=== PATIENT | female | born 1960 | race African-American/Black ===

== ENCOUNTER 2017-03-24 08:01 | Emergency (ER) | payer BC, OTHER ==
[2017-03-24 08:08] VITALS: TEMP 98.3; BMI 21.2
[2017-03-24] MEDS ORDERED: MECLIZINE HCL 25 MG TABLET (FP) PO ONE ×2 (09:57→13:15)
[2017-03-24 10:17] VITALS: BP 138/82; PULSE 58
[2017-03-24 10:19] LABS: BASO % 0.6 % (0-2.0); EOS % 0.2 % (0-4.5); HEMATOCRIT 39.3 % (32.4-45.2); HEMOGLOBIN 13.1 GM/dL (10.7-15.3); LYMPH % 34.4 % (8-40); MCH 32.8 pg (25.7-33.7); MCHC 33.3 g/dl (32.0-36.0); MEAN CELL VOLUME 98.3 fl (80-96); MEAN PLT VOLUME 9.4 fl (7.5-11.1); MONO % 6.6 % (3.8-10.2); NEUT % 58.2 % (42.8-82.8); PLATELET COUNT 213 K/MM3 (134-434); RDW 13.6 % (11.6-15.6); WHITE BLOOD COUNT 5.2 K/mm3 (4.0-10.0)
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
[2017-03-24 10:47] LABS: ALBUMIN 4.1 g/dl (3.4-5.0); ANION GAP 6 (8-16); BILIRUBIN,TOTAL 1.2 mg/dL (0.2-1.0); BLOOD UREA NITROGEN 8 mg/dL (7-18); CALCIUM 9.2 mg/dL (8.5-10.1); CHLORIDE 107 mmol/L (98-107); CO2 28 mmol/L (21-32); CREATININE 0.9 mg/dL (0.55-1.02); GLUCOSE,RANDOM 93 mg/dL (74-106); POTASSIUM 4.1 mmol/L (3.5-5.1); SGOT/AST 23 U/L (15-37); SGPT/ALT 34 U/L (12-78); SODIUM 141 mmol/L (136-145); TOT PROT 7.6 g/dl (6.4-8.2)
[2017-03-24 10:55] LABS: ALK PHOS 58 U/L (45-117)
--- NOTE | 2017-03-24 11:14 | PDOC ---
*Physical Exam - Vital Signs Last Vital Signs Temp Pulse Resp BP Pulse Ox 98.3 F 58 L 14 138/82 100 03/24/17 08:05 03/24/17 10:16 03/24/17 10:16 03/24/17 10:16 03/24/17 10:16 ED Treatment Course - LABORATORY CBC & Chemistry Diagram: 03/24/17 10:05 03/24/17 10:05 - ADDITIONAL ORDERS Additional order review: Laboratory Results 03/24/17 10:05 Sodium 141 Potassium 4.1 Chloride 107 Carbon Dioxide 28 Anion Gap 6 L BUN 8 D Creatinine 0.9 Creat Clearance w eGFR > 60 Random Glucose 93 Calcium 9.2 Total Bilirubin 1.2 H AST 23 ALT 34 D Alkaline Phosphatase 58 D Total Protein 7.6 Albumin 4.1 TSH 0.39 03/24/17 10:05 RBC 4.00 MCV 98.3 H MCHC 33.3 RDW 13.6 MPV 9.4 Neutrophils % 58.2 Lymphocytes % 34.4 Monocytes % 6.6 Eosinophils % 0.2 D Basophils % 0.6 Medical Decision Making - Medical Decision Making 03/24/17 11:12 56-year-old female presents to the ED with complaints of intermittent vertigo, worsened with standing No headache No tinnitus h/o vertigo Pt seen by Midlevel Provider under my direct supervision Pt interviewed and examined Ancillary studies reviewed EKG: Sinus bradycardia, rate 55, axis is normal, intervals are normal, no ST elevations or depressions I agree with plan as outlined by Midlevel Provider 03/24/17 14:21 Laboratory Tests 03/24/17 03/24/17 10:05 10:05 WBC 5.2 Hgb 13.1 Hct 39.3 Plt Count 213 Neutrophils % 58.2 Lymphocytes % 34.4 BUN 8 D Creatinine 0.9 TSH 0.39 Pt improved in the ER Discharged to home *DC/Admit/Observation/Transfer Diagnosis at time of Disposition: Vertigo - Discharge Dispostion Disposition: HOME Condition at time of disposition: Improved - Prescriptions Prescriptions: Meclizine HCl [Antivert -] 12.5 mg PO TID PRN #60 tablet PRN Reason: Vertigo - Referrals Referrals: Christopher Garcia MD [Primary Care Provider] - Aaron Subramanian MD [Staff Physician] - - Patient Instructions Printed Discharge Instructions: DI for Vertigo Additional Instructions: Please take meclizine as needed for dizziness. drink plenty of fluids and get up in increments upon arising in the morning. - Post Discharge Activity Forms/Work/School Notes: Back to Work
[2017-03-24 13:36] LABS: URINE APPEARANCE CLEAR; URINE BILIRUBIN NEGATIVE (NEGATIVE); URINE BLOOD NEGATIVE (NEGATIVE); URINE COLOR STRAW; URINE GLUCOSE (UA) NEGATIVE (NEGATIVE); URINE KETONE NEGATIVE (NEGATIVE); URINE LEUK ESTERASE NEGATIVE (NEGATIVE); URINE NITRITE NEGATIVE (NEGATIVE); URINE PROTEIN NEGATIVE (NEGATIVE); URINE UROBILINOGEN NEGATIVE mg/dL (0.2-1.0)
--- NOTE | 2017-03-24 16:52 | EKG ---
Test Reason : Blood Pressure : / mmHG Vent. Rate : 055 BPM Atrial Rate : 055 BPM P-R Int : 154 ms QRS Dur : 084 ms QT Int : 418 ms P-R-T Axes : 061 -13 027 degrees QTc Int : 399 ms SINUS BRADYCARDIA CANNOT RULE OUT ANTEROSEPTAL INFARCT , AGE UNDETERMINED ABNORMAL ECG WHEN COMPARED WITH ECG OF 27-NOV-2012 18:48, MINIMAL CRITERIA FOR ANTEROSEPTAL INFARCT ARE NOW PRESENT Confirmed by APOLINAR LEES MD ([id number]) on 03/24/2017 4:52:36 PM Referred By: Confirmed By:APOLINAR LEES MD
== END 2017-03-24 14:31 | disposition home or self-care (01) ==
LOC: JER 08:01
DX: R42 Dizziness and giddiness (principal)
CPT/HCPCS: 36415; 80053; 81003; 84443; 85025; 93005; 93010; 99285-25